=== PATIENT | male | born 1975 | race Caucasian/White ===

== ENCOUNTER 2018-09-27 22:20 | Emergency (ER) | payer MEDICAID ==
[~2018-09-27] VITALS: Ht 182.9 cm; Wt 108.0 kg
[~2018-09-27 22:20] MED LIST: AC500T PO; ALB.5NB20 HHN; IBP800T PO; LEXAPRO; LITHIUM
--- OUTSIDE RECORDS SUMMARY | 2018-09-27 22:26 | XMS REPORT ---
Author Author BETZAIDA HSU Organization [employer] Address Unknown Phone Unavailable Care Team Providers Care Optical Assistant Name Role Phone BETZAIDA HSU CP Unavailable Allergies, Adverse Reactions, Alerts Substance Reaction Event Type Ritalin Info Not Available Drug Allergy Problems Problem Type Condition Code Onset Dates Condition Status Problem Nausea alone 787.02 Active Problem Unspecified disorder of skin and subcutaneous tissue 709.9 Active Problem Generalized anxiety disorder 300.02 Active Problem Pain in soft tissues of limb 729.5 Active Problem Neoplasm of uncertain behavior of skin 238.2 Active Problem Unspecified cellulitis and abscess of toe 681.10 Active Problem Candidiasis of unspecified site 112.9 Active Problem Other general medical examination for administrative purposes V70.3 Active Problem Cellulitis and abscess of unspecified site 682.9 Active Problem Orthostatic hypotension 458.0 Active Assessment Exposure to STD Z20.2 Active Assessment Mood disorder F39 Active Assessment Exposure to HIV Z20.6 Active Assessment Family history of early CAD Z82.49 Active Assessment Screen for STD (sexually transmitted disease) Z11.3 Active Medications Medication Code System Code Instructions Start Date End Date Status Dosage Invega [facility] [address]-80 9 MG Orally Once a day 1 tablet in the morning Neurontin [facility] [address]-43 100 MG Orally 2 times a day not defined Multivitamin Adult [facility] 83668-94905 - Orally not defined Probiotic [facility] 47[address]-14737 - Orally not defined Remeron [facility] [address]-73 30 MG Orally Once a day 1 tablet before bedtime in the evening Procedures Procedure Coding System Code Date Office Visit, Est Pt., Level 3 CPT-4 31584 January 31, 2016 Vital Signs Date/Time: January 31, 2016 Cardiac Monitoring Heart Rate 108 bpm Weight 225 lbs Height 71 in Blood Pressure Diastolic 88 mmHg Blood Pressure Systolic 136 mmHg Results No Known Results Summary Purpose [employer] Submission
--- OUTSIDE RECORDS SUMMARY | 2018-09-27 22:26 | XMS REPORT | Continuity of Care Document ---
Author Author [facility] Address Unknown Phone Unavailable Allergies Active Description Code Type Severity Reaction Onset Reported/Identified Relationship to Patient Clinical Status Yes RITALIN 45590526367 Drug Allergy N/A N/A Yes Ritalin Drug Allergy 10/03/2012 Yes Ritalin Drug Allergy N/A N/A 10/03/2012 Medications Medication Packaging Start Date Stop Date Route Dosage Sig ZYPREXA ORAL 10/09/2016 INVEGA SUSTENNA Intramuscular 10/09 Problems Date Dx Coded Attending Type Code Diagnosis Diagnosed By 10/03/2012 V70.3 OTHER GENERAL MEDICAL EXAMINATION FOR ADMINISTRATIVE PURPOSES 10/03/2012 JOE RODRIGUEZ APRN N V70.3 OTHER GENERAL MEDICAL EXAMINATION FOR ADMINISTRATIVE PURPOSES 10/03/2012 JOE RODRIGUEZ APRN N V70.3 OTHER GENERAL MEDICAL EXAMINATION FOR ADMINISTRATIVE PURPOSES 10/03/2012 JOE RODRIGUEZ APRN N V70.3 OTHER GENERAL MEDICAL EXAMINATION FOR ADMINISTRATIVE PURPOSES 01/28/2013 JOE RODRIGUEZ APRN N 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 01/28/2013 JOE RODRIGUEZ APRN N 682.9 CELLULITIS AND ABSCESS OF UNSPECIFIED SITES 01/28/2013 JOE RODRIGUEZ APRN N 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 01/28/2013 JOE RODRIGUEZ APRN N 682.9 CELLULITIS AND ABSCESS OF UNSPECIFIED SITES 01/28/2013 JOE RODRIGUEZ APRN N 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 01/28/2013 JOE RODRIGUEZ APRN N 682.9 CELLULITIS AND ABSCESS OF UNSPECIFIED SITES 02/17/2013 JOE RODRIGUEZ APRN N 709.9 SKIN LESIONS 02/17/2013 JOE RODRIGUEZ APRN N 709.9 SKIN LESIONS 02/17/2013 JOE RODRIGUEZ APRN N 709.9 SKIN LESIONS 04/29/2013 JOE RODRIGUEZ APRN N 681.10 UNSPECIFIED CELLULITIS AND ABSCESS OF TOE 04/29/2013 JOE RODRIGUEZ APRN N 729.5 PAIN IN LIMB 04/29/2013 GIGI RODRIGUEZ APRNCY N 681.10 UNSPECIFIED CELLULITIS AND ABSCESS OF TOE 04/29/2013 GIGI RODRIGUEZ APRNCY N 729.5 PAIN IN LIMB 04/29/2013 GIGI RODRIGUEZ APRNCY N 681.10 UNSPECIFIED CELLULITIS AND ABSCESS OF TOE 04/29/2013 GIGI RODRIGUEZ APRNCY N 729.5 PAIN IN LIMB 12/30/2013 GIGI RODRIGUEZ APRNCY N 112.9 CANDIDIASIS OF UNSPECIFIED SITE 12/30/2013 GIGI RODRIGUEZ APRNCY N 458.0 ORTHOSTATIC HYPOTENSION 12/30/2013 GIGI RODRIGUEZ APRNCY N 112.9 CANDIDIASIS OF UNSPECIFIED SITE 12/30/2013 GIGI RODRIGUEZ APRNCY N 458.0 ORTHOSTATIC HYPOTENSION 02/19/2014 JOE RODRIGUEZ APRN N 300.02 GENERALIZED ANXIETY DISORDER 02/19/2014 JOE RODRIGUEZ APRN N 787.02 NAUSEA ALONE Procedures Code [place] [address] CMP 12/30/2013 51271 LIPID PANEL 12/30/2013 19796 URINE DRUG SCREEN (IN-HOUSE ) 12/30/2013 33142 TSH 12/30/2013 41678 CBC 12/30/2013 Results Test Result Range TSH - 05/20/18 10:13 TSH 1.20 mIU/L 0.40-4.50 Encounters ACCT No. Visit Date/Time Discharge Status Pt. Type Provider Facility Loc./Unit Complaint [id number] 02/19/2014 08:11:00 02/19/2014 23:59:59 CLS Outpatient [facility], JOE N [id number] 12/30/2013 11:23:00 12/30/2013 23:59:59 CLS Outpatient [facility], JOE N [id number] 04/29/2013 08:05:00 04/29/2013 23:59:59 CLS Outpatient BLAINE BURKETTIRMA POE JOE N [id number] 10/03/2012 11:40:00 10/03/2012 23:59:59 CLS Outpatient [id number] 05/20/2018 09:40:00 Document Registration [id number] 10/17/2016 14:22:00 10/17/2016 14:22:00 DIS Outpatient
--- OUTSIDE RECORDS SUMMARY | 2018-09-27 22:26 | XMS REPORT ---
Author Author BETZAIDA HSU [facility] Address [address] [place] [address] Care Team Providers Care Certified Real Estate Appraiser Name Role Phone BETZAIDA HSU Unavailable PROBLEMS Type Condition ICD9-CM Code [id number] Code Onset Dates Condition Status SNOMED Code Problem Generalized anxiety disorder 300.02 Active 85412527 Problem Other general medical examination for administrative purposes V70.3 Active 07503550 Problem Unspecified disorder of skin and subcutaneous tissue 709.9 Active 08140856 Problem Unspecified cellulitis and abscess of toe 681.10 Active 855745093 Problem Pain in soft tissues of limb 729.5 Active 05424624 Problem Orthostatic hypotension 458.0 Active 58012521 Problem Candidiasis of unspecified site 112.9 Active 54631855 Problem Neoplasm of uncertain behavior of skin 238.2 Active 36634530 Problem Cellulitis and abscess of unspecified site 682.9 Active 322892367 Assessment Exposure to STD Z20.2 14 Jan, 2016 Active 981674513 Assessment Exposure to HIV Z20.6 Jan, Active Assessment Family history of early CAD Z82.49 Jan, Active 317898807 Assessment Screen for STD (sexually transmitted disease) Z11.3 Jan, Active 292033684 Assessment Mood disorder F39 Jan, Active 00422408 Problem Nausea alone 787.02 Active 500392095 ALLERGIES Unknown Allergies SOCIAL HISTORY No smoking Hx information available PLAN OF CARE VITAL SIGNS MEDICATIONS Unknown Medications RESULTS Name Result Date Reference Range TSH 2016-02-03 TSH 2.130 0.450-4.500 CBC 2016-02-03 WBC 4.9 3.4-10.8 RBC 5.29 4.14-5.80 Hemoglobin 15.8 12.6-17.7 Hematocrit 46.1 37.5-51.0 MCV 87 79-97 MCH 29.9 26.6-33.0 MCHC 34.3 31.5-35.7 RDW 14.9 12.3-15.4 Platelets 229 150-379 Neutrophils 48 Lymphs 39 Monocytes 9 Eos 3 Basos 0 Immature Cells Neutrophils (Absolute) 2.3 1.4-7.0 Lymphs (Absolute) 1.9 0.7-3.1 Monocytes(Absolute) 0.4 0.1-0.9 Eos (Absolute) 0.1 0.0-0.4 Baso (Absolute) 0.0 0.0-0.2 Immature Granulocytes 1 Immature Grans (Abs) 0.1 0.0-0.1 NRBC Hematology Comments: LIPID PANEL 2016-02-03 Cholesterol, Total 158 100-199 Triglycerides 196 0-149 HDL Cholesterol 35 >39 VLDL Cholesterol Navarro 39 5-40 LDL Cholesterol Calc 84 0-99 Comment: CMP 2016-02-03 Glucose, Serum 92 65-99 BUN 9 6-20 Creatinine, Serum 0.90 0.76-1.27 eGFR If NonAfricn Am 108 >59 eGFR If Africn Am 125 >59 BUN/Creatinine Ratio 10 8-19 Sodium, Serum 142 134-144 Potassium, Serum 4.4 3.5-5.2 Chloride, Serum 102 97-108 Carbon Dioxide, Total 22 18-29 Calcium, Serum 9.3 8.7-10.2 Protein, Total, Serum 6.3 6.0-8.5 Albumin, Serum 4.2 3.5-5.5 Globulin, Total 2.1 1.5-4.5 A/G Ratio 2.0 1.1-2.5 Bilirubin, Total 0.3 0.0-1.2 Alkaline Phosphatase, S 28 39-117 AST (SGOT) 21 0-40 ALT (SGPT) 43 0-44 GC/CHLAM URINE (STATE) 2016-02-03 CHLAMYDIA negative GC negative HEP C ANTIBODY (STATE) 2016-02-03 RESULTS SYPHILIS (STATE) 2016-02-03 HIV (STATE) 2016-02-03 HEP B SURFACE ANTIGEN (STATE) 2016-02-03 HEP B ANTIBODY HEP B ANTIBODY (L) HEP B ANTIBODY (STATE) PROCEDURES Procedure Date Ordered Related Diagnosis Body Site No Charge February 03, 2016 LAB NOT BILLED BY [facility]5 examples February 03, 2016 VENIPUNCT, ROUTINE* February 03, 2016 IMMUNIZATIONS No Known Immunizations
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
[2018-09-27 23:05] LABS: BASOPHILS % (AUTO) 1 % (0-10); EOSINOPHILS # (AUTO) 0.2 10^3/uL (0.0-0.3); EOSINOPHILS % (AUTO) 2 % (0-10); HEMATOCRIT 43 % (40-54); HEMOGLOBIN 15.7 G/DL (13.3-17.7); LYMPHOCYTES # (AUTO) 2.1 X 10^3 (1.0-4.0); LYMPHOCYTES % (AUTO) 30 % (12-44); MEAN CORPUSCULAR HEMOGLOBIN 32 PG (25-34); MEAN CORPUSCULAR HGB CONC 37 G/DL (32-36); MEAN CORPUSCULAR VOLUME 86 FL (80-99); MEAN PLATELET VOLUME 9.4 FL (7.4-10.4); MONOCYTES # (AUTO) 0.6 X 10^3 (0.0-1.0); MONOCYTES % (AUTO) 9 % (0-12); NEUTROPHILS % (AUTO) 58 % (42-75); PLATELET COUNT 274 10^3/uL (130-400); RED CELL DISTRIBUTION WIDTH 13.5 % (10.0-14.5); WHITE BLOOD COUNT 6.9 10^3/uL (4.3-11.0)
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
[2018-09-27 23:08] LABS: BILIRUBIN,URINE NEGATIVE (NEGATIVE); CLARITY,URINE CLEAR; COLOR,URINE YELLOW; GLUCOSE, URINE (UA) NEGATIVE (NEGATIVE); KETONES,URINE 1+ (NEGATIVE); LEUKOCYTE ESTERASE ,URINE 1+ (NEGATIVE); NITRITE,URINE NEGATIVE (NEGATIVE); PH,URINE 6 (5-9); PROTEIN,URINE NEGATIVE (NEGATIVE); UROBILINOGEN,URINE NORMAL (NORMAL)
[2018-09-27 23:17] LABS: BACTERIA,URINE NEGATIVE /HPF; RBC,URINE RARE /HPF; SQUAMOUS EPITHELIAL CELL,UR 0-2 /HPF; WBC,URINE RARE /HPF
[2018-09-27 23:26] LABS: AMPHETAMINE SCREEN, URINE POSITIVE (NEGATIVE); BARBITURATE SCREEN URINE NEGATIVE (NEGATIVE); BENZODIAZEPINES SCREEN URINE NEGATIVE (NEGATIVE); CANNABINOID SCREEN, URINE NEGATIVE (NEGATIVE); COCAINE SCREEN URINE NEGATIVE (NEGATIVE); METHADONE STAT NEGATIVE (NEGATIVE); METHAMPHETAMINE SCREEN URINE S NEGATIVE (NEGATIVE); OPIATE SCREEN URINE NEGATIVE (NEGATIVE); OXYCODONE STAT NEGATIVE (NEGATIVE); PROPOXYPHENE STAT NEGATIVE (NEGATIVE); TRICYCLIC ANTIDEPRESSANTS SCRE NEGATIVE (NEGATIVE)
[2018-09-27 23:33] LABS: ALANINE AMINOTRANSFERASE 30 U/L (0-55); ALBUMIN 4.2 GM/DL (3.2-4.5); ALKALINE PHOSPHATASE 38 U/L (40-136); BILIRUBIN,TOTAL 0.3 MG/DL (0.1-1.0); BUN/CREATININE RATIO 12; CALCIUM 9.5 MG/DL (8.5-10.1); CARBON DIOXIDE 23 MMOL/L (21-32); CHLORIDE 105 MMOL/L (98-107); CREATININE SERUM 1.11 MG/DL (0.60-1.30); GFR ESTIMATED > 60; GLUCOSE 101 MG/DL (70-105); POTASSIUM 3.8 MMOL/L (3.6-5.0); SALICYLATE < 5.0 MG/DL (5.0-20.0); SODIUM 142 MMOL/L (135-145); TOTAL PROTEIN 6.6 GM/DL (6.4-8.2)
[2018-09-27 23:34] LABS: ACETAMINOPHEN < 10 UG/ML (10-30)
--- NOTE | 2018-09-27 23:50 | NUR ---
PT TO NURSES DESK. PT REQUEST TO SMOKE A CIGARETTE. PT STATES, "I DON'T FEEL SUICIDAL, I DON'T WANT TO KILL MYSELF, I JUST WANT HELP WITH MY ALCOHOL AND DRUG ADDICTION." PT STATES, "THE CIGARETES JUST HELP ME CALM DOWN."
--- NOTE | 2018-09-28 00:05 | NUR ---
CONTACTED [facility] FOR REQUEST PT TRANSFER TO [facility].
--- NOTE | 2018-09-28 00:09 | NUR ---
REPORT GIVEN TO JESS @ [facility]. UPON ARRIVAL ROOM #[id number].
[2018-09-28] MEDS ORDERED: hydrOXYzine (VISTARIL) 25 MG capsule/tablet PO ONE (00:15)
[2018-09-28] MEDS ORDERED: NICOTINE 21 MG (NICODERM) PATCH TD ONE (00:15)
[2018-09-28 00:38] VITALS: BP 139/101
== END 2018-09-28 00:38 ==
LOC: EDUNIT# 22:20 → ER 22:22
DX: R45.851 Suicidal ideations (principal); F41.9 Anxiety disorder, unspecified; F10.10 Alcohol abuse, uncomplicated; F15.10 Other stimulant abuse, uncomplicated; F14.10 Cocaine abuse, uncomplicated; F12.10 Cannabis abuse, uncomplicated; F22 Delusional disorders; F31.9 Bipolar disorder, unspecified; F17.210 Nicotine dependence, cigarettes, uncomplicated; Z79.51 Long term (current) use of inhaled steroids; Z98.890 Other specified postprocedural states; Z87.820 Personal history of traumatic brain injury
CPT/HCPCS: 36415; 80053; 80306; 80320; 80329; 81000; 84443; 85025; 93005

== ENCOUNTER 2019-04-16 22:40 | Emergency (ER) | payer MEDICAID ==
[~2019-04-16] VITALS: Ht 180 cm; Wt 107.0 kg
[2019-04-16] MEDS ORDERED: TRIM/SULFAMETH 160/800 (SEPTRA DS) TAB PO ONE (22:56)
[2019-04-16 22:58] VITALS: BP 134/79
[2019-04-17] MEDS ORDERED: PALI78DI IM (00:38)
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
[2019-04-17] MEDS ORDERED: TRIM/SULFAMETH 160/800 (SEPTRA DS) TAB PO ONE (01:00)
== END 2019-04-16 22:58 | disposition home or self-care (01) ==
LOC: ER 22:40 → EDUNIT# 22:40 → ER 22:58
DX: L02.413 Cutaneous abscess of right upper limb (principal); R07.89 Other chest pain; F41.9 Anxiety disorder, unspecified; F31.9 Bipolar disorder, unspecified; F91.8 Other conduct disorders; Z77.22 Contact with and (suspected) exposure to environmental tobacco smoke (acute) (chronic); Z87.820 Personal history of traumatic brain injury
CPT/HCPCS: 10160; 87070; 87077; 87205

== ENCOUNTER 2020-02-06 05:14 | Emergency (ER) | payer MEDICAID ==
[~2020-02-06] VITALS: Ht 182 cm; Wt 102.0 kg
[~2020-02-06 05:14] MED LIST changes: +PALI78DI IM
[2020-02-06] MEDS ORDERED: LACTATED RINGERS 1,000 ML IV ONE ×2 (05:16→05:23)
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
--- OUTSIDE RECORDS SUMMARY | 2020-02-06 05:20 | XMS REPORT | Continuity of Care Document ---
Author Organization Unknown Address Unknown Phone Unavailable Allergies Active Description Code Type Severity Reaction Onset Reported/Identified Relationship to Patient Clinical Status Yes RITALIN [id number] Drug Allergy N/A N/A Yes NKANo Known Allergies NKA Miscellaneous Allergy Mild N/A 09/14/2009 Yes Ritalin Drug Allergy 10/03/2012 Yes Ritalin Drug Allergy N/A N/A 10/03/2012 Medications Medication Packaging Start Date St op Date Route Dosage Sig ZYPREXA ORAL 10/10/19 17 INVEGA SUSTENNA Intramuscula r 10/09/2016 Problems Date Dx Coded Attending Type Code Diagnosis Diagnosed By 10/03/2012 V70.3 OTHE R GENERAL MEDICAL EXAMINATION FOR ADMINISTRATIVE PURPOSES 10/03/2012 JOE RODRIGUEZ APRN N V70.3 OTHER GENERAL MEDICAL EXAMINATION FOR ADMINISTRATIVE P URPOSES 10/03/2012 JOE RODRIGUEZ APRN N V70.3 OTHER GENERAL MEDICAL EXAMINATION FOR ADMINISTRATIVE P URPOSES 10/03/2012 JOE RODRIGUEZ APRN N V70.3 OTHER GENERAL MEDICAL EXAMINATION FOR ADMINISTRATIVE P URPOSES 01/28/2013 JOE RODRIGUEZ APRN N 238.2 NEOPLASM [...] RODRIGUEZ APRN N 709.9 SKIN LESIONS 02/17/2013 VALLADARES CASHERO FLAKER OPERATOR, JOE N 709.9 SKIN LESIONS 04/29/2013 VALLADARES CASHERO FLAKER OPERATOR, JOE N 681.10 UNSPECIFIED CELLULITIS AND ABSCESS OF TOE 04/29/2013 VALLADARES CASHERO FLAKER OPERATOR, JOE N 729.5 PAIN IN LIMB 04/29/2013 VALLADARES CASHERO FLAKER OPERATOR, JOE N 681.10 UNSPECIFIED CELLULITIS AND ABSCESS OF TOE 04/29/2013 VALLADARES CASHERO FLAKER OPERATOR, JOE N 729.5 PAIN IN LIMB 04/29/2013 VALLADARES CASHERO FLAKER OPERATOR, JOE N 681.10 UNSPECIFIED CELLULITIS AND ABSCESS OF TOE 04/29/2013 VALLADARES CASHERO FLAKER OPERATOR, JOE N 729.5 PAIN IN LIMB 12/30/2013 VALLADARES CASHERO FLAKER OPERATOR, JOE N 112.9 CANDIDIASIS OF UNSPECIFIED SITE 12/30/2013 VALLADARES CASHERO FLAKER OPERATOR, JOE N 458.0 ORTHOSTATIC HYPOTENSION 12/30/2013 VALLADARES CASHERO FLAKER OPERATOR, JOE N 112.9 CANDIDIASIS OF UNSPECIFIED SITE 12/30/2013 VALLADARES CASHERO FLAKER OPERATOR, JOE N 458.0 ORTHOSTATIC HYPOTENSION 02/19/2014 VALLADARES CASHERO FLAKER OPERATOR, JOE N 300.02 GENERALIZED ANXIETY DISORDER 02/19/2014 VALLADARES CASHERO FLAKER OPERATOR, JOE N 787.02 NAUSEA ALONE 09/28/2018 KATTY LUNA DO Ot F10.10 ALCOHOL ABUSE, UNCOMPLICATED 09/28/2018 KATTY LUNA DO Ot F12.10 CANNABIS ABUSE, UNCOMPLICATED 09/28/2018 KATTY LUNA DO Ot F14.10 COCAINE ABUSE, UNCOMPLICATED 09/28/2018 KATTY LUNA DO Ot F15.10 OTHER STIMULANT ABUSE, UNCOMPLICATED 09/28/2018 KATTY LUNA DO Ot F17.210 NICOTINE DEPENDENCE, CIGARETTES, UNCOMPL 09/28/2018 KATTY LUNA DO Ot F22 DELUSIONAL DISORDERS 09/28/2018 KATTY LUNA DO Ot F31.9 BIPOLAR DISORDER, UNSPECIFIED 09/28/2018 KATTY LUNA DO Ot F41.9 ANXIETY DISORDER, UNSPECIFIED 09/28/2018 KATTY LUNA DO Ot R45.851 SUICIDAL IDEATIONS 09/28/2018 KATTY LUNA DO Ot Z79.51 CARE HOME (CURRENT) USE OF INHALED STERO 09/28/2018 CHERYL DO, KATTY K Ot Z87.820 PERSONAL HISTORY OF TRAUMATIC BRAIN INJU 09/28/2018 CHERYL , KATTY K Ot Z98.890 OTHER SPECIFIED POSTPROCEDURAL STATES 10/01/2018 CHERYL DO, KATTY K Ot F10.10 ALCOHOL ABUSE, UNCOMPLICATED 10/01/2018 CHERYL DO, KATTY K Ot F12.10 CANNABIS ABUSE, UNCOMPLICATED 10/01/2018 CHERYL DO, KATTY K Ot F14.10 COCAINE ABUSE, UNCOMPLICATED 10/01/2018 CHERYL DO, KATTY K Ot F15.10 OTHER STIMULANT ABUSE, UNCOMPLICATED 10/01/2018 CHERYL DO, KATTY K Ot F17.210 NICOTINE DEPENDENCE, CIGARETTES, UNCOMPL 10/01/2018 CHERYL DO KATTY K Ot F22 DELUSIONAL DISORDERS 10/01/2018 CHERYL DO KATTY K Ot F31.9 BIPOLAR DISORDER, UNSPECIFIED 10/01/2018 CHERYL DO KATTY K Ot F41.9 ANXIETY DISORDER, UNSPECIFIED 10/01/2018 CHERYL DO, KATTY K Ot R45.851 SUICIDAL IDEATIONS 10/01/2018 CHERYL KATTY K Ot Z79.51 CARE HOME (CURRENT) USE OF INHALED STERO 10/01/2018 CHERYL KATTY K Ot Z87.820 PERSONAL HISTORY OF TRAUMATIC BRAIN INJU 10/01/2018 CHERYL KATTY K Ot Z98.890 OTHER SPECIFIED POSTPROCEDURAL STATES 10/03/2018 CHERYL DO KATTY K Ot F10.10 ALCOHOL ABUSE, UNCOMPLICATED 10/03/2018 CHERYL DO KATTY K Ot F12.10 CANNABIS ABUSE, UNCOMPLICATED 10/03/2018 CHERYL DO KATTY K Ot F14.10 COCAINE ABUSE, UNCOMPLICATED 10/03/2018 CHERYL DO, KATTY K Ot F15.10 OTHER STIMULANT ABUSE, UNCOMPLICATED 10/03/2018 CHERYL DO KATTY K Ot F17.210 NICOTINE DEPENDENCE, CIGARETTES, UNCOMPL 10/03/2018 CHERYL DO KATTY K Ot F22 DELUSIONAL DISORDERS 10/03/2018 CHERYL DO KATTY K Ot F31.9 BIPOLAR DISORDER, UNSPECIFIED 10/03/2018 CHERYL DO KATTY K Ot F41.9 ANXIETY DISORDER, UNSPECIFIED 10/03/2018 KATTY LUNA DO Ot R45.851 SUICIDAL IDEATIONS 10/03/2018 KATTY LUNA DO Ot Z79.51 CARE HOME (CURRENT) USE OF INHALED STERO 10/03/2018 KATTY LUNA DO Ot Z87.820 PERSONAL HISTORY OF TRAUMATIC BRAIN INJU 10/03/2018 KATTY LUNA DO Ot Z98.890 OTHER SPECIFIED POSTPROCEDURAL STATES 04/16/2019 DARLING COBURN MD Ot F31.9 BIPOLAR DISORDER, UNSPECIFIED 04/16/2019 DARLING COBURN MD Ot F41.9 ANXIETY DISORDER, UNSPECIFIED 04/16/2019 DARLING COBURN MD Ot F91.8 OTHER CONDUCT DISORDERS 04/16/2019 DARLING COBURN MD Ot L02.413 CUTANEOUS ABSCESS OF RIGHT UPPER LIMB 04/16/2019 DARLING COBURN MD Ot R07.89 OTHER CHEST PAIN 04/16/2019 DARLING COBURN MD Ot Z77.22 CNTCT W AND EXPSR TO ENVIRON TOBACCO SMO 04/16/2019 DARLING COBURN MD Ot Z87.820 PERSONAL HISTORY OF TRAUMATIC BRAIN INJU 04/18/2019 DARLING COBURN MD Ot F31.9 BIPOLAR DISORDER, UNSPECIFIED 04/18/2019 DARLING COBURN MD Ot F41.9 ANXIETY DISORDER, UNSPECIFIED 04/18/2019 DARLING COBURN MD Ot F91.8 OTHER CONDUCT DISORDERS 04/18/2019 DARLING COBURN MD Ot L02.413 CUTANEOUS ABSCESS OF RIGHT UPPER LIMB 04/18/2019 DARLING COBURN MD Ot R07.89 OTHER CHEST PAIN 04/18/2019 DARLING COBURN MD Ot Z77.22 CNTCT W AND EXPSR TO ENVIRON TOBACCO SMO 04/18/2019 DARLING COBURN MD Ot Z87.820 PERSONAL HISTORY OF TRAUMATIC BRAIN INJU Procedures Code Description Performed [place] [address] CMP 12/30/2013 14619 LIPI D PANEL 12/30/2013 10281 MIGUEL E DRUG SCREEN (IN-HOUSE) 12/30/2013 27051 TSH 12/30/2013 16233 CBC 12/30/2013 Results Test Result Range TSH - 05/20/18 10:13 TSH 1.20 mIU/L 0.40-4.50 Complete blood count (CBC) with automate d white blood cell (WBC) differential - 09/27/18 22:55 Blood leukocytes automated count (number/volume) 6.9 10*3/uL 4.3-11.0 Blood erythrocytes automated count (number/volume) 4.98 10*6/uL 4.35-5.85 Venous blood hemoglobin measurement (mass/volume) 15.7 g/dL 13.3-17.7 Blood hematocrit (volume fraction) 43 % 40-54 Automated erythrocyte mean corpuscular volume 86 [ foz_us] 80-99 Automated erythrocyte mean corpuscular h emoglobin (mass per erythrocyte) 32 pg 25-34 Automated erythrocyte mean corpuscular h emoglobin concentration measurement (mass/volume) 37 g/dL 32-36 Automated erythrocyte distribution width ratio 13. 5 % 10.0- 14.5 Automated blood platelet count (count/volume) 274 10*3/uL 130-400 Automated blood platelet mean volume measurement 9.4 [foz_us] 7.4-10.4 Automated blood neutrophils/100 leukocytes 58 % 42-75 Automated blood lymphocytes/100 leukocytes 30 % 12-44 Blood monocytes/100 leukocytes 9 % 0-12 Automated blood eosinophils/100 leukocytes 2 % 0-10 Automated blood basophils/100 leukocytes 1 % 0-10 Blood neutrophils automated count (number/volume) 4.0 10*3 1.8-7.8 Blood lymphocytes automated count (number/volume) 2.1 10*3 1.0-4.0 Blood monocytes automated count (number/volume) 0. 6 10*3 0.0-1.0 Automated eosinophil count 0.2 10*3/uL 0 .0-0.3 Automated blood basophil count (count/volume) 0.0 10*3/uL 0.0-0.1 Comprehensive metabolic panel - 09/27/18 22:55 Serum or plasma sodium measurement (moles/volume) 142 mmol/L 135-145 Serum or plasma potassium measurement (moles/volume) 3.8 mmol/L 3.6-5.0 Serum or plasma chloride measurement (moles/volume) 105 mmol/L 98-107 Carbon dioxide 23 mmol/L 21-32 Serum or plasma anion gap determination (moles/volume) 14 mmol/L 5-14 Serum or plasma urea nitrogen measurement (mass/volume ) 13 mg/dL 7-18 Serum or plasma creatinine measurement (mass/volume) 1.11 mg/dL 0.60-1.30 Serum or plasma urea nitrogen/creatinine mass ratio 12 NRG Serum or plasma creatinine measurement w ith calculation of estimated glomerular filtration rate > NRG Serum or plasma glucose measurement (mass/volume) 101 mg/dL 70-105 Serum or plasma calcium measurement (mass/volume) 9.5 mg/dL 8.5-10.1 Serum or plasma total bilirubin measurement (mass/volu me) 0.3 mg/dL 0.1-1.0 Serum or plasma alkaline phosphatase gato surement (enzymatic activity/volume) 38 U/L 40-136 Serum or plasma aspartate aminotransfera se measurement (enzymatic activity/volume) 26 U/L 5-34 Serum or plasma alanine aminotransferase measurement (enzymatic activity/volume) 30 U/L 0-55 Serum or plasma protein measurement (mass/volume) 6.6 g/dL 6.4-8.2 Serum or plasma albumin measurement (mass/volume) 4.2 g/dL 3.2-4.5 CALCIUM CORRECTED 9.3 mg/dL 8.5-10.1 Serum or plasma thyrotropin measurement by detection limit <=0.05 miu/l (units/volume) - 09/27/18 22:55 Serum or plasma thyrotropin measurement by detection limit <=0.05 miu/l (units/volume) 1.50 u[iU]/mL 0.35-4.94 Serum or plasma salicylates measurement (mass/volume) - 09/27/18 22:55 Serum or plasma salicylates measurement (mass/volume) < mg/dL 5.0-20.0 Serum or plasma acetaminophen measuremen t (mass/volume) - 09/27/18 22:55 Serum or plasma acetaminophen measurement (mass/volume ) < ug/mL 10-30 Serum or plasma ethanol measurement (mas s/volume) - 09/27/18 22:55 Serum or plasma ethanol measurement (mass/volume) 11 mg/dL <10 Complete urinalysis with reflex to cultu re - 09/27/18 23:00 Urine color determination YELLOW NRG Urine clarity determination CLEAR NR G Urine pH measurement by test strip 6 5-9 Specific gravity of urine by test strip 1.020 1.016-1.022 Urine protein assay by test strip, semi-quantitative NEGATIVE NEGATIVE Urine glucose detection by automated test strip NE GATIVE NEGATIVE Erythrocytes detection in urine sediment by light micr oscopy NEGATIVE NEGATIVE Urine ketones detection by automated test strip 1+ NEGATIVE Urine nitrite detection by test strip NEGATIVE NEGATIVE Urine total bilirubin detection by test strip NEGA TIVE NEGATIVE Urine urobilinogen measurement by automated test strip (mass/volume) NORMAL NORMAL Urine leukocyte esterase detection by dipstick 1+ NEGATIVE Automated urine sediment erythrocyte cou nt by microscopy (number/high power field) RARE NRG Automated urine sediment leukocyte count by microscopy (number/high power field) RARE NRG Bacteria detection in urine sediment by light microsco py NEGATIVE NRG Squamous epithelial cells detection in u rine sediment by light microscopy 0-2 NRG Crystals detection in urine sediment by light microsco py NONE NRG Casts detection in urine sediment by light microscopy NONE NRG Mucus detection in urine sediment by light microscopy NEGATIVE NRG Complete urinalysis with reflex to culture NO NRG Urine drug screening test - 09/27/18 23: 00 Urine phencyclidine detection by screening method NEGATIVE NEGATIVE Urine benzodiazepines detection by screening method NEGATIVE NEGATIVE Urine cocaine detection NEGATIVE NEGATI VE Urine amphetamines detection by screening method P OSITIVE NEGATIVE Urine methamphetamine detection by screening method NEGATIVE NEGATIVE Urine cannabinoids detection by screening method N EGATIVE NEGATIVE Urine opiates detection by screening method NEGATI VE NEGATIVE Urine barbiturates detection NEGATIVE N EGATIVE Screening urine tricyclic antidepressants detection NEGATIVE NEGATIVE Urine methadone detection by screening method NEGA TIVE NEGATIVE Urine oxycodone detection NEGATIVE NEGA TIVE Urine propoxyphene detection NEGATIVE N EGATIVE Gram stain microscopy - 04/16/19 22:50 Gram stain microscopy No bacteria seen NRG Bacteria identification in wound by cult ure - 04/16/19 22:50 Bacteria identification in wound by culture [id number] NRG FREE TEXT EXTERNAL SUSCEPTIBILITY REPORTED 04-19-10 9, 7165 NRG QUANTITY OF GROWTH FEW NRG Dirithromycin susceptibility test by dis k diffusion - 04/16/19 22:50 Gentamicin susceptibility test by minimum inhibitory c oncentration <= NRG Trimethoprim/sulfamethoxazole susceptibi lity test by minimum inhibitoryconcentration <= NRG Levofloxacin susceptibility test by minimum inhibitory concentration <= NRG Ampicillin susceptibility test by minimum inhibitory c oncentration > NRG Cefazolin susceptibility test by minimum inhibitory co ncentration > NRG Ceftriaxone susceptibility test by minimum inhibitory concentration <= NRG Piperacillin/tazobactam susceptibility t est by minimum inhibitory concentration = NRG Ciprofloxacin susceptibility test by minimum inhibitor y concentration <= NRG Meropenem susceptibility test by minimum inhibitory co ncentration <= NRG Amoxicillin and clavulanate potassium susc BRENDEN > NRG Encounters ACCT No. Visit Date/Time Discharge Status Pt. Type Provider Facility Loc./Unit Complaint [id number] 02/19/2014 08:11:00 02/19/2014 23:59: 59 CLS Outpatient BLAINE DALE APRN JOE N [id number] 12/30/2013 11:23:00 12/30/2013 23:59: 59 CLS Outpatient BLAINE DALE APRN JOE N [id number] 04/29/2013 08:05:00 04/29/2013 23:59: 59 CLS Outpatient JOE RODRIGUEZ APRN N [id number] 10/03/2012 11:40:00 10/03/2012 23:59: 59 CLS Outpatient [id number] 05/20/2018 09:40:00 Document Registration [id number] 10/17/2016 14:22:00 10/17/2016 14:22 :00 DIS Outpatient [id number] 04/16/2019 22:40:00 019 22:58:00 DIS Emergency IRISH ALMENDAREZ, DARLING Mckenzie [facility] POSS SPIDER BIT E [id number] 09/27/2018 22:22:00 019 00:38:00 DIS Emergency KATTY LUNA DO a [facility] SUICIDAL
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
[2020-02-06] MEDS ORDERED: KETOROLAC 30 MG/ML VIAL IVP STA (05:23)
[2020-02-06] MEDS ORDERED: diphenhydrAMINE 50 MG/ML INJ (BENADRYL) IVP ONE (05:30)
[2020-02-06 05:31] LABS: BASOPHILS % (AUTO) 1 % (0-10); EOSINOPHILS # (AUTO) 0.3 10^3/uL (0.0-0.3); EOSINOPHILS % (AUTO) 3 % (0-10); HEMATOCRIT 46 % (40-54); HEMOGLOBIN 16.9 G/DL (13.3-17.7); LYMPHOCYTES # (AUTO) 3.5 X 10^3 (1.0-4.0); LYMPHOCYTES % (AUTO) 42 % (12-44); MEAN CORPUSCULAR HEMOGLOBIN 31 PG (25-34); MEAN CORPUSCULAR HGB CONC 37 G/DL (32-36); MEAN CORPUSCULAR VOLUME 85 FL (80-99); MEAN PLATELET VOLUME 9.4 FL (7.4-10.4); MONOCYTES # (AUTO) 0.9 X 10^3 (0.0-1.0); MONOCYTES % (AUTO) 11 % (0-12); NEUTROPHILS # (AUTO) 3.6 X 10^3 (1.8-7.8); NEUTROPHILS % (AUTO) 43 % (42-75); PLATELET COUNT 273 10^3/uL (130-400); WHITE BLOOD COUNT 8.3 10^3/uL (4.3-11.0)
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
[2020-02-06 05:40] LABS: ALBUMIN 4.2 GM/DL (3.2-4.5); CHLORIDE 104 MMOL/L (98-107); POTASSIUM 3.9 MMOL/L (3.6-5.0); SODIUM 138 MMOL/L (135-145)
[2020-02-06 05:41] LABS: AMYLASE 48 U/L (25-125); CALCIUM 9.1 MG/DL (8.5-10.1)
[2020-02-06 05:42] LABS: GLUCOSE 149 MG/DL (70-105); TOTAL PROTEIN 6.6 GM/DL (6.4-8.2)
[2020-02-06 05:43] LABS: BILIRUBIN,URINE NEGATIVE (NEGATIVE); CLARITY,URINE CLEAR; COLOR,URINE YELLOW; GLUCOSE, URINE (UA) NEGATIVE (NEGATIVE); KETONES,URINE NEGATIVE (NEGATIVE); LEUKOCYTE ESTERASE ,URINE NEGATIVE (NEGATIVE); NITRITE,URINE NEGATIVE (NEGATIVE); PROTEIN,URINE NEGATIVE (NEGATIVE)
[2020-02-06 05:43] LABS: CARBON DIOXIDE 19 MMOL/L (21-32)
[2020-02-06 05:44] LABS: BILIRUBIN,TOTAL 0.7 MG/DL (0.1-1.0)
[2020-02-06 05:46] LABS: ALKALINE PHOSPHATASE 34 U/L (40-136); CREATININE SERUM 1.38 MG/DL (0.60-1.30); GFR ESTIMATED 57
[2020-02-06 05:47] LABS: BUN/CREATININE RATIO 7
[2020-02-06 05:49] LABS: ALANINE AMINOTRANSFERASE 47 U/L (0-55); MAGNESIUM 1.8 MG/DL (1.6-2.4)
[2020-02-06 05:50] LABS: LIPASE 58 U/L (8-78)
[2020-02-06 05:54] LABS: WBC,URINE RARE /HPF
[2020-02-06 05:55] LABS: BACTERIA,URINE TRACE /HPF; CALCIUM OXALATE CRYSTALS,UR RARE /LPF; SQUAMOUS EPITHELIAL CELL,UR 0-2 /HPF
[2020-02-06 05:56] LABS: AMPHETAMINE SCREEN, URINE POSITIVE (NEGATIVE); BARBITURATE SCREEN URINE NEGATIVE (NEGATIVE); BENZODIAZEPINES SCREEN URINE NEGATIVE (NEGATIVE); CANNABINOID SCREEN, URINE NEGATIVE (NEGATIVE); COCAINE SCREEN URINE NEGATIVE (NEGATIVE); METHADONE STAT NEGATIVE (NEGATIVE); METHAMPHETAMINE SCREEN URINE S POSITIVE (NEGATIVE); OPIATE SCREEN URINE NEGATIVE (NEGATIVE); OXYCODONE STAT NEGATIVE (NEGATIVE); PROPOXYPHENE STAT NEGATIVE (NEGATIVE); TRICYCLIC ANTIDEPRESSANTS SCRE NEGATIVE (NEGATIVE)
[2020-02-06] MEDS ORDERED: TAMSULOSIN 0.4 MG (FLOMAX) CAP PO SCH (06:15)
[2020-02-06] MEDS ORDERED: ORPHENADRINE 60 MG/2 ML (NORFLEX) AMP (ED ONLY) IV ONE (06:15)
--- NOTE | 2020-02-06 06:17 | Diagnostic Imaging Report ---
INDICATION: Left lower quadrant pain, abdominal pain with burning sensation for one half hours. FINDINGS: Upright view of the chest demonstrates symmetric nodules consistent with the patient's nipples. Lungs otherwise clear. Heart and vascularity are normal. Supine and upright views of the abdomen demonstrate no free air or air fluid levels. Mildly increased stool is seen in the colon. Small bowel gas pattern is normal. IMPRESSION: There is mildly increased stool in the colon. Dictated by: Dictated on workstation # [id number]
--- NOTE | 2020-02-06 06:21 | Diagnostic Imaging Report ---
PROCEDURE: CT urinary tract, rule out kidney stone. TECHNIQUE: Multiple contiguous axial images were obtained through the abdomen and pelvis without the use of intravenous contrast. Auto Exposure Controls were utilized during the CT exam to meet ALARA standards for radiation dose reduction. INDICATION: Left lower quadrant abdominal pain with burning sensation. COMPARISON: None FINDINGS: Included portions of the lung bases are clear. Small hiatal hernia is noted. CT ABDOMEN: There is mild left-sided hydroureteronephrosis. This is felt to be secondary to punctate 2 mm calculus within the distal left ureter (image 111, series 2). No other renal or ureteral calculi are seen on either side. Kidneys have an otherwise unremarkable noncontrast CT appearance. Liver is diffusely hypodense consistent with hepatic steatosis. The adrenal glands, spleen, and pancreas have an unremarkable noncontrast CT appearance. Small bowel loops are nondistended. Normal appendix is identified. Few scattered clonic diverticuli are noted. There is, however, no CT evidence of acute diverticulitis. There is no loculated fluid collection, free fluid, nor free air within the abdomen. No abnormal mesenteric or retroperitoneal adenopathy is seen. Osseous structures show no acute abnormalities. CT pelvis: Urinary bladder is unopacified and nondistended. Again, there is punctate 2 mm calculus within the distal left ureter. There is no loculated fluid collection, free fluid or free air within the pelvis. No abnormal adenopathy is seen. Osseous structures show chronic appearing bilateral L5 pars defects. IMPRESSION: 1. Mild left-sided hydroureteronephrosis secondary to punctate 2 mm calculus within the distal left ureter. 2. Hepatic steatosis. Dictated by: Dictated on workstation # [id number]
[2020-02-06] MEDS ORDERED: KETO10TA PO (06:27)
[2020-02-06] MEDS ORDERED: CIPR500T4 PO (06:27)
[2020-02-06] MEDS ORDERED: TMSL.4C PO (06:27)
[2020-02-06] MEDS ORDERED: ONDA4TAB11 PO (06:27)
[2020-02-06 06:44] VITALS: BP 142/84
== END 2020-02-06 06:48 | disposition home or self-care (01) ==
LOC: EDUNIT# 05:14 → ER 05:15
DX: N13.2 Hydronephrosis with renal and ureteral calculous obstruction (principal); F15.90 Other stimulant use, unspecified, uncomplicated; F10.10 Alcohol abuse, uncomplicated; F17.210 Nicotine dependence, cigarettes, uncomplicated
CPT/HCPCS: 74022; 74176; 80053; 80306; 81000; 82150; 83690; 83735; 85025; 99284; G0480; 36415; 80320

== ENCOUNTER 2021-07-12 11:31 | Emergency (ER) | payer MEDICAID ==
[~2021-07-12] VITALS: Ht 182 cm; Wt 95.0 kg
[~2021-07-12 11:31] MED LIST changes: +CIPR500T5 PO; +KETO10TA PO; +ONDA4TAB11 PO; +TMSL.4C PO
[2021-07-12] MEDS ORDERED: TETANUS,DIPTH,PERTUSS P/F (BOOSTRIX) 0.5 ML VIAL IM ONE (11:45)
[2021-07-12] MEDS ORDERED: HYDROcodone/APAP 5 MG/325 MG (LORTAB) TAB PO ONE (11:45)
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
--- OUTSIDE RECORDS SUMMARY | 2021-07-12 11:52 | XMS REPORT | Clinical Summary ---
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 Indications: Trouble Sleeping Active paliperidone (INVEGA) 6 Take 1 tablet 30 tablet 0 03/29/201 MG 24 hr (6 mg total) 4 tabletIndications: by mouth Bipolar every morning. Indications: Bipolar Active Problems Problem Noted Date Bipolar disorder 03/29/2014 Amphetamine dependence 03/29/2014 Antisocial personality disorder 03/29/2014 Resolved Problems Problem Noted Date Resolved Date Mood disorder 03/26/2014 03/29/2014 Suicidal ideation 03/26/2014 03/29/2014 Social History Date Tobacco Use Types Packs/Day Years Used Current Every Day Smoker Tobacco Cessation: Ready to Quit: No; Co unseling Given: Yes Comments Alcohol Use Standard Drinks/Week Yes 0 (1 standard drink = 0.6 o z pure alcohol) Sex Assigned at Date Recorded Not on file Last Filed Vital Signs Reading Time Taken Comments Vital Sign 105/61 03/29/2014 6:42 AM CDT Blood Pressure 57 03/29/2014 6:42 AM CDT Pulse 37 C (98.6 F) 03/29/2014 6:42 AM CDT Temperature 16 03/29/2014 6:42 AM CDT Respiratory Rate 97% 03/28/2014 1:00 PM CDT Oxygen Saturation - - Inhaled Oxygen Concentration 96.6 kg (213 lb) 03/25/2014 7:00 PM CDT Weight 182.9 cm (6' 0.01") 03/25/2014 7:00 PM CDT Height 28.88 03/25/2014 7:00 PM CDT Body Mass Index Plan of Treatment Health Maintenance Due Date Last Done Comments Varicella Vaccines (1 of 1978 2 - 2-dose childhood series) COVID-19 Vaccine (1) 1989 Hepatitis C Screening 1995 DTaP,Tdap,and Td Vaccines 1996 (1 - Tdap) MMR Vaccines-Adult 1996 Influenza Vaccine (#1) 2021 Pneumo-Vaccine: 65+Yrs (1 2042 of 1 - PPSV23) HIB Vaccines Aged Out No longer eligible based on patient's age to complete this topic IPV Vaccines Aged Out No longer eligible based on patient's age to complete this topic Meningococcal Vaccine Aged Out No longer eligib le based on patient's age to complete this topic Pneumo-Vaccine: Peds (0-5 Aged Out No longer el igible based on patient's age to Yrs) & At-Risk Patients complete this topic (6-64 Yrs) Rotavirus Vaccines Aged Out No longer eligible based on patient's age to complete this topic Results Not on filefrom Last 3 Months Insurance Type Payer Benefit Subscriber ID Effective Phone Address Plan / Dates Group [facility] [id number] 2013- [phone] ETHAN BLUM Present [address] [place] [id number] Advance Directives For more information, please contact: [phone] Date Inactivated Comments Code Status Date Activated 03/29/2014 5:34 PM Full Code 03/26/2014 12:00 AM
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
--- NOTE | 2021-07-12 12:36 | Diagnostic Imaging Report ---
EXAMINATION: HUMERUS, LEFT, 2 VIEWS. INDICATION: Left arm injury. COMPARISON: None available. TECHNIQUE: Two views of the left humerus. FINDINGS: No radiopaque foreign body or soft tissue gas. No acute fracture within the left humerus. The shoulder and elbow are grossly in normal alignment. IMPRESSION: No acute osseous abnormality in the left humerus. Dictated by: Dictated on workstation # [id number]
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
[2021-07-12 12:53] VITALS: BP 134/97
== END 2021-07-12 12:53 | disposition home or self-care (01) ==
LOC: EDUNIT# 11:31 → ER 11:33
DX: S40.022A Contusion of left upper arm, initial encounter (principal)
CPT/HCPCS: 70450; 71101; 72125; 73060; 90715; 99284

== ENCOUNTER 2021-07-14 21:04 | Emergency (ER) | payer MEDICAID ==
[~2021-07-14] VITALS: Ht 183 cm; Wt 99.8 kg
[2021-07-14 23:32] VITALS: BP 105/84
[2021-07-14] MEDS ORDERED: ZIPR20CA23 PO (23:58)
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
[2021-07-15] MEDS ORDERED: ZIPRASIDONE 20 MG (GEODON) CAP PO ONE
[2021-07-15] MEDS ORDERED: diphenhydrAMINE 25 MG TAB (BENADRYL) PO ONE
== END 2021-07-15 00:15 | disposition home or self-care (01) ==
LOC: EDUNIT# 21:04 → ER 21:06
DX: F41.0 Panic disorder [episodic paroxysmal anxiety] (principal); F31.9 Bipolar disorder, unspecified; T43.596A Underdosing of other antipsychotics and neuroleptics, initial encounter; Z91.128 Patient's intentional underdosing of medication regimen for other reason
CPT/HCPCS: 99283

== ENCOUNTER 2021-09-15 11:59 | Emergency (ER) | payer MEDICAID ==
[~2021-09-15] VITALS: Ht 182 cm; Wt 95.0 kg
[~2021-09-15 11:59] MED LIST changes: +ZIPR20CA23 PO
[2021-09-15] MEDS ORDERED: LORazepam 0.5 MG (ATIVAN) TABLET PO STA (12:24)
[2021-09-15] MEDS ORDERED: ZIPR20CA23 PO (12:28)
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
[2021-09-15 13:03] VITALS: BP 167/97
== END 2021-09-15 13:03 | disposition home or self-care (01) ==
LOC: EDUNIT# 11:59 → ER 12:00
DX: F41.9 Anxiety disorder, unspecified (principal); F22 Delusional disorders
CPT/HCPCS: 99283

== ENCOUNTER 2021-11-29 20:40 | Emergency (ER) | payer MEDICAID | END 2021-11-29 20:57 | disposition left against medical advice (07) | LOC: EDUNIT# 20:40 → ER 20:43 | DX: R52 Pain, unspecified (principal) ==

== ENCOUNTER 2021-11-30 01:56 | Emergency (ER) | payer MEDICAID ==
[~2021-11-30] VITALS: Ht 180 cm; Wt 95.2 kg
[2021-11-30 02:11] VITALS: BP 134/76
[2021-11-30] MEDS ORDERED: KETOROLAC 30 MG/ML VIAL IVP STA (02:47)
[2021-11-30 02:52] LABS: BASOPHILS % (AUTO) 0 % (0-10); EOSINOPHILS % (AUTO) 0 % (0-10); HEMATOCRIT 43 % (40-54); HEMOGLOBIN 15.4 g/dL (13.3-17.7); LYMPHOCYTES % (AUTO) 8 % (12-44); MEAN CORPUSCULAR HEMOGLOBIN 31 pg (25-34); MEAN CORPUSCULAR HGB CONC 36 g/dL (32-36); MEAN CORPUSCULAR VOLUME 87 fL (80-99); MEAN PLATELET VOLUME 9.8 fL (9.0-12.2); MONOCYTES # (AUTO) 0.7 10^3/uL (0.0-1.0); MONOCYTES % (AUTO) 5 % (0-12); NEUTROPHILS # (AUTO) 11.2 10^3/uL (1.8-7.8); NEUTROPHILS % (AUTO) 86 % (42-75); PLATELET COUNT 306 10^3/uL (130-400)
[2021-11-30 02:56] LABS: ALBUMIN 4.1 GM/DL (3.2-4.5); POTASSIUM 4.6 MMOL/L (3.6-5.0)
[2021-11-30 02:57] LABS: CALCIUM 9.5 MG/DL (8.5-10.1)
[2021-11-30 02:59] LABS: TOTAL PROTEIN 6.8 GM/DL (6.4-8.2)
[2021-11-30 03:00] LABS: BILIRUBIN,TOTAL 1.1 MG/DL (0.1-1.0)
[2021-11-30] MEDS ORDERED: NS IV 1000 ML 1,000 ML IV SCH (03:00)
[2021-11-30 03:02] LABS: BILIRUBIN,URINE NEGATIVE (NEGATIVE); COLOR,URINE YELLOW; GLUCOSE, URINE (UA) NEGATIVE (NEGATIVE); KETONES,URINE 2+ (NEGATIVE); LEUKOCYTE ESTERASE ,URINE TRACE (NEGATIVE); NITRITE,URINE NEGATIVE (NEGATIVE); PH,URINE 8.5 (5-9); PROTEIN,URINE 1+ (NEGATIVE)
[2021-11-30 03:02] LABS: CREATININE SERUM 1.34 MG/DL (0.60-1.30)
[2021-11-30 03:10] LABS: BACTERIA,URINE TRACE /HPF; CLARITY,URINE SL CLOUDY; RBC,URINE 25-50 /HPF; SQUAMOUS EPITHELIAL CELL,UR RARE /HPF; WBC,URINE 0-2 /HPF
[2021-11-30 03:18] LABS: BAND NEUTROPHILS 1 %; BASOPHILS % (MANUAL) 0 %; EOSINOPHILS % (MANUAL) 0 %; LYMPHOCYTES % (MANUAL) 3 %; MONOCYTES % (MANUAL) 5 %; NEUTROPHILS % (MANUAL) 79 %
[2021-11-30 03:18] LABS: AMPHETAMINE SCREEN, URINE POSITIVE (NEGATIVE); BARBITURATE SCREEN URINE NEGATIVE (NEGATIVE); BENZODIAZEPINES SCREEN URINE POSITIVE (NEGATIVE); CANNABINOID SCREEN, URINE NEGATIVE (NEGATIVE); COCAINE SCREEN URINE NEGATIVE (NEGATIVE); METHADONE STAT NEGATIVE (NEGATIVE); OPIATE SCREEN URINE NEGATIVE (NEGATIVE); OXYCODONE STAT NEGATIVE (NEGATIVE); PROPOXYPHENE STAT NEGATIVE (NEGATIVE); TRICYCLIC ANTIDEPRESSANTS SCRE NEGATIVE (NEGATIVE)
[2021-11-30 03:19] LABS: RBC MORPH NORMAL; REACTIVE LYMPHOCYTES 12 %
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
--- NOTE | 2021-11-30 05:16 | Diagnostic Imaging Report ---
PROCEDURE: CT urinary tract, rule out kidney stone. TECHNIQUE: Multiple contiguous axial images were obtained through the abdomen and pelvis without the use of intravenous contrast. Auto Exposure Controls were utilized during the CT exam to meet ALARA standards for radiation dose reduction. INDICATION: Right flank pain for one day, history of renal calculi. COMPARISONS: 02/06/2020. FINDINGS: The lung bases are clear. Cardiac contour is normal. There is a trace pericardial effusion similar to the previous study. Liver shows uniform attenuation. There is no intraparenchymal mass or ductal dilatation. Gallbladder, spleen, stomach are normal. There is a small hiatal hernia with some distal esophageal mucosal thickening possibly sequela of reflux. The stomach and duodenal sweep are otherwise unremarkable. Pancreas shows sharp margins. Adrenals are normal. Kidneys appear normal in size, position, and contour. There are few punctate nonobstructing left renal calculi. The right kidney shows perinephric stranding. There is also mild right hydronephrosis and right hydroureter with periureteral stranding. This right obstructive uropathy is secondary to a recent passage of a 2 mm calculus which is seen within the bladder. Few pelvic phleboliths are seen. Nonopacified loops of small bowel are unremarkable. Appendix is also normal. Large bowel contains fecal material and gas. There is no free air, free fluid or adenopathy. Visualized vasculature shows normal caliber of the aorta, iliac and femoral arteries. Bone windows show few scattered Schmorl's nodes as well as some degenerative changes in the thoracolumbar lesion. There is no lytic or blastic changes. IMPRESSION: 1. Right obstructive uropathy secondary to edema from recent passage of a 2 mm stone which is seen within the bladder. There is associated mild right hydronephrosis and right hydroureter with some mild right perinephric stranding. 2. Punctate nonobstructing left renal calculi. 3. There is no evidence of cholecystitis or appendicitis. No areas of peritoneal inflammation seen. Additional nonemergent findings as described above. Agree with [place] report. Dictated by: Dictated on workstation # [id number]
== END 2021-11-30 04:30 ==
LOC: EDUNIT# 01:56 → ER 01:58
DX: N20.0 Calculus of kidney (principal)
CPT/HCPCS: 36415; 74176; 80053; 80306; 81000; 83690; 85007; 85027

== ENCOUNTER 2022-02-17 00:43 | Emergency (ER) | payer MEDICAID | END 2022-02-17 01:20 | disposition left against medical advice (07) | LOC: EDUNIT# 00:43 → ER 00:46 | DX: F99 Mental disorder, not otherwise specified (principal) ==

== ENCOUNTER 2022-03-23 10:02 | Emergency (ER) | payer MEDICAID ==
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
[2022-03-23 10:55] LABS: BASOPHILS # (AUTO) 0.1 10^3/uL (0.0-0.1); BASOPHILS % (AUTO) 1 % (0-10); EOSINOPHILS # (AUTO) 0.4 10^3/uL (0.0-0.3); EOSINOPHILS % (AUTO) 4 % (0-10); HEMATOCRIT 45 % (40-54); LYMPHOCYTES # (AUTO) 3.2 10^3/uL (1.0-4.0); LYMPHOCYTES % (AUTO) 33 % (12-44); MEAN CORPUSCULAR HEMOGLOBIN 31 pg (25-34); MEAN CORPUSCULAR HGB CONC 35 g/dL (32-36); MEAN CORPUSCULAR VOLUME 87 fL (80-99); MEAN PLATELET VOLUME 9.6 fL (9.0-12.2); MONOCYTES # (AUTO) 0.9 10^3/uL (0.0-1.0); MONOCYTES % (AUTO) 10 % (0-12); NEUTROPHILS # (AUTO) 5.2 10^3/uL (1.8-7.8); NEUTROPHILS % (AUTO) 53 % (42-75); PLATELET COUNT 327 10^3/uL (130-400); WHITE BLOOD COUNT 9.9 10^3/uL (4.3-11.0)
[2022-03-23 10:58] LABS: BILIRUBIN,URINE NEGATIVE (NEGATIVE); CLARITY,URINE CLEAR; COLOR,URINE YELLOW; GLUCOSE, URINE (UA) NEGATIVE (NEGATIVE); KETONES,URINE NEGATIVE (NEGATIVE); LEUKOCYTE ESTERASE ,URINE NEGATIVE (NEGATIVE); NITRITE,URINE NEGATIVE (NEGATIVE); PROTEIN,URINE NEGATIVE (NEGATIVE)
[2022-03-23 11:06] LABS: AMORPHOUS SEDIMENT,UR FEW AMOR PHOSPHATE /LPF; BACTERIA,URINE TRACE /HPF; SQUAMOUS EPITHELIAL CELL,UR RARE /HPF; WBC,URINE RARE /HPF
[2022-03-23 11:12] LABS: AMPHETAMINE SCREEN, URINE POSITIVE (NEGATIVE); BARBITURATE SCREEN URINE NEGATIVE (NEGATIVE); BENZODIAZEPINES SCREEN URINE NEGATIVE (NEGATIVE); CANNABINOID SCREEN, URINE NEGATIVE (NEGATIVE); COCAINE SCREEN URINE NEGATIVE (NEGATIVE); METHADONE STAT NEGATIVE (NEGATIVE); OPIATE SCREEN URINE NEGATIVE (NEGATIVE); OXYCODONE STAT NEGATIVE (NEGATIVE); PROPOXYPHENE STAT NEGATIVE (NEGATIVE); TRICYCLIC ANTIDEPRESSANTS SCRE NEGATIVE (NEGATIVE)
[2022-03-23 11:13] LABS: ALBUMIN 4.2 GM/DL (3.2-4.5); CHLORIDE 104 MMOL/L (98-107); SODIUM 139 MMOL/L (135-145)
[2022-03-23 11:14] LABS: CALCIUM 9.8 MG/DL (8.5-10.1)
[2022-03-23 11:16] LABS: GLUCOSE 84 MG/DL (70-105); TOTAL PROTEIN 6.9 GM/DL (6.4-8.2)
[2022-03-23 11:17] LABS: BILIRUBIN,TOTAL 0.4 MG/DL (0.1-1.0); CARBON DIOXIDE 29 MMOL/L (21-32)
[2022-03-23 11:19] LABS: ALKALINE PHOSPHATASE 33 U/L (40-136); CREATININE SERUM 0.94 MG/DL (0.60-1.30); GFR ESTIMATED 103
[2022-03-23 11:21] LABS: ACETAMINOPHEN < 10 UG/ML (10-30); BUN/CREATININE RATIO 20
[2022-03-23 11:22] LABS: ALANINE AMINOTRANSFERASE 18 U/L (0-55); SALICYLATE < 5.0 MG/DL (5.0-20.0)
[2022-03-23 13:22] VITALS: BP 145/95
== END 2022-03-23 13:25 | disposition left against medical advice (07) ==
LOC: EDUNIT# 10:02 → ER 10:05
DX: Z00.00 Encounter for general adult medical examination without abnormal findings (principal); Z72.0 Tobacco use; Z20.822 Contact with and (suspected) exposure to COVID-19
CPT/HCPCS: 80053; 80306; 81000; 84443; 85025; 87636; 93005; 99284; G0480 ×3; 36415; 80320; 80329

== ENCOUNTER 2022-04-09 02:12 | Emergency (ER) | payer MEDICAID ==
[~2022-04-09] VITALS: Ht 182.9 cm; Wt 88.5 kg
[2022-04-09 02:28] VITALS: BP 129/79
[2022-04-09 02:57] LABS: BASOPHILS # (AUTO) 0.1 10^3/uL (0.0-0.1); BASOPHILS % (AUTO) 1 % (0-10); EOSINOPHILS # (AUTO) 0.2 10^3/uL (0.0-0.3); EOSINOPHILS % (AUTO) 2 % (0-10); HEMATOCRIT 46 % (40-54); HEMOGLOBIN 16.3 g/dL (13.3-17.7); LYMPHOCYTES % (AUTO) 36 % (12-44); MEAN CORPUSCULAR HEMOGLOBIN 31 pg (25-34); MEAN CORPUSCULAR HGB CONC 35 g/dL (32-36); MEAN CORPUSCULAR VOLUME 86 fL (80-99); MEAN PLATELET VOLUME 9.3 fL (9.0-12.2); MONOCYTES # (AUTO) 0.7 10^3/uL (0.0-1.0); MONOCYTES % (AUTO) 8 % (0-12); NEUTROPHILS # (AUTO) 4.5 10^3/uL (1.8-7.8); NEUTROPHILS % (AUTO) 53 % (42-75); PLATELET COUNT 343 10^3/uL (130-400); WHITE BLOOD COUNT 8.4 10^3/uL (4.3-11.0)
[2022-04-09 03:09] LABS: BILIRUBIN,URINE NEGATIVE (NEGATIVE); CLARITY,URINE CLEAR; COLOR,URINE YELLOW; GLUCOSE, URINE (UA) NEGATIVE (NEGATIVE); KETONES,URINE NEGATIVE (NEGATIVE); LEUKOCYTE ESTERASE ,URINE NEGATIVE (NEGATIVE); NITRITE,URINE NEGATIVE (NEGATIVE); PROTEIN,URINE NEGATIVE (NEGATIVE)
[2022-04-09 03:12] LABS: ALBUMIN 4.5 GM/DL (3.2-4.5); CHLORIDE 106 MMOL/L (98-107); POTASSIUM 3.7 MMOL/L (3.6-5.0); SODIUM 143 MMOL/L (135-145)
[2022-04-09 03:13] LABS: CALCIUM 10.1 MG/DL (8.5-10.1)
[2022-04-09 03:14] LABS: GLUCOSE 102 MG/DL (70-105)
[2022-04-09 03:15] LABS: CARBON DIOXIDE 18 MMOL/L (21-32); TOTAL PROTEIN 7.2 GM/DL (6.4-8.2)
[2022-04-09 03:16] LABS: BACTERIA,URINE NEGATIVE /HPF; BILIRUBIN,TOTAL 0.4 MG/DL (0.1-1.0); SQUAMOUS EPITHELIAL CELL,UR RARE /HPF
[2022-04-09 03:18] LABS: ALKALINE PHOSPHATASE 33 U/L (40-136); CREATININE SERUM 1.25 MG/DL (0.60-1.30); GFR ESTIMATED 73
[2022-04-09 03:20] LABS: BUN/CREATININE RATIO 14
[2022-04-09 03:21] LABS: ALANINE AMINOTRANSFERASE 19 U/L (0-55); AMPHETAMINE SCREEN, URINE POSITIVE (NEGATIVE); BARBITURATE SCREEN URINE NEGATIVE (NEGATIVE); BENZODIAZEPINES SCREEN URINE NEGATIVE (NEGATIVE); CANNABINOID SCREEN, URINE POSITIVE (NEGATIVE); COCAINE SCREEN URINE NEGATIVE (NEGATIVE); METHADONE STAT NEGATIVE (NEGATIVE); OPIATE SCREEN URINE NEGATIVE (NEGATIVE); OXYCODONE STAT NEGATIVE (NEGATIVE); PROPOXYPHENE STAT NEGATIVE (NEGATIVE); SALICYLATE < 5.0 MG/DL (5.0-20.0); TRICYCLIC ANTIDEPRESSANTS SCRE NEGATIVE (NEGATIVE)
[2022-04-09 03:22] LABS: ACETAMINOPHEN < 10 UG/ML (10-30)
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
[2022-04-09] MEDS ORDERED: NICOTINE 21 MG (NICODERM) PATCH TD ONE (04:45)
--- NOTE | 2022-04-09 07:17 | Diagnostic Imaging Report ---
EXAMINATION: Right hand radiographs, 3 views. COMPARISON: None. HISTORY: 46-year-old male, right hand pain. FINDINGS: There are healed prior fracture deformities of the fourth and fifth metacarpals. There is mild osteoarthritis of the first carpometacarpal joint. There is a deformity of the base of the first metacarpal which most likely relates to a healed remote prior fracture. There is no identified acute fracture. There is no identified radiopaque foreign body. There is no identified subluxation or dislocation. Joint spaces otherwise appear well-preserved. IMPRESSION: 1. Healed prior fracture deformities of the first, fourth, and fifth metacarpals. 2. No identified acute bony abnormality of the right hand. Dictated by: Dictated on workstation # [id number]
== END 2022-04-09 07:05 | disposition left against medical advice (07) ==
LOC: EDUNIT# 02:19 → ER 02:20
DX: S60.511A Abrasion of right hand, initial encounter (principal); Z20.822 Contact with and (suspected) exposure to COVID-19; W22.8XXA Striking against or struck by other objects, initial encounter
CPT/HCPCS: 73130; 80053; 80306; 81000; 85025; 87636; 99284; G0480 ×3; 36415; 80320; 80329